=== PATIENT | female | born 1960 | race Caucasian/White ===

== ENCOUNTER 2017-01-15 12:20 | Outpatient (CLI) | END 2017-01-15 12:21 | disposition home or self-care (01) | LOC: CAR 12:20 | PROVIDERS: ATTEND Physician Assistant | DX: I10 Essential (primary) hypertension (principal) | CPT/HCPCS: 93005; 93010 ==

== ENCOUNTER 2017-01-23 12:27 | Outpatient (CLI) ==
--- NOTE | 2017-01-23 13:26 | US ---
EXAM: ULTRASOUND CAROTID DUPLEX, BILATERAL HISTORY: Hypertension, dizziness and speech difficulty FINDINGS: Cho-scale ultrasound, color Doppler and spectral analysis was performed. Velocities are in meters per second. By cho scale and color Doppler imaging, there were regions of heterogeneous plaque formation identi fied within the carotid bulbs and internal carotid arteries. These regions of plaque appeared to re main less than 50% vessel diameter. RIGHT: External carotid artery peak systolic velocity: 0.9/0.2 Common carotid artery peak systolic velocity/end diastolic velocity: 0.9/0.2 Internal carotid artery peak systolic velocity: 0.9 ICA/CCA peak systolic velocity ratio: 0.9 ICA end diastolic velocity: 0.3 LEFT: External carotid artery peak systolic velocity: 1.0/0.2 Common carotid artery peak systolic velocity/end diastolic velocity: 0.9/0.2 Internal carotid artery peak systolic velocity: 0.6 ICA/CCA peak systolic velocity ratio: 0.7 ICA end diastolic velocity: 0.2 The right and left vertebral arteries were antegrade. IMPRESSION: 1. By cho scale and color Doppler imaging, there were regions of heterogeneous plaque formation id entified within the carotid bulbs and internal carotid arteries. These regions of plaque appeared t o remain less than 50% vessel diameter. 2. Internal carotid artery peak systolic velocities and ICA/CCA peak systolic velocity ratios indic ate no hemodynamically significant stenosis bilaterally. 3. Both vertebral arteries were antegrade.
== END 2017-01-23 12:28 | disposition home or self-care (01) ==
LOC: RAD 12:27
PROVIDERS: ATTEND Physician Assistant
DX: R42 Dizziness and giddiness (principal); I10 Essential (primary) hypertension

== ENCOUNTER 2017-02-13 11:04 | Outpatient (CLI) ==
--- NOTE | 2017-02-14 09:39 | MAMMO ---
EXAM: Bilateral digital screening mammogram History: Screening Comparison: Bilateral mammogram 10/09/2008 Findings: MLO and CC views of bilateral breasts demonstrate scattered fibroglandular breast parench yma. Stable benign bilateral breast calcifications. There are no dominant masses, no suspicious mi crocalcifications and no architectural distortions Impression: Benign stable mammogram. Recommend followup routine screening mammography in 1 year. BIRADS 2
== END 2017-02-13 11:05 | disposition home or self-care (01) ==
LOC: RAD 11:04
PROVIDERS: ATTEND Physician Assistant
DX: Z12.31 Encounter for screening mammogram for malignant neoplasm of breast (principal)

== ENCOUNTER 2017-05-08 14:34 | Outpatient (CLI) ==
[2017-05-08 15:09] LABS: CHOL/HDL RATIO 3.6 (4.5-5.5)
== END 2017-05-08 14:35 | disposition home or self-care (01) ==
LOC: LAB 14:34
PROVIDERS: ATTEND Clinical Nurse Specialist
DX: E78.2 Mixed hyperlipidemia (principal)
CPT/HCPCS: 36415; 80061; 84450; 84460

== ENCOUNTER 2018-01-30 12:25 | Outpatient (CLI) | END 2018-01-30 12:26 | disposition home or self-care (01) | LOC: CAR 12:25 | PROVIDERS: ATTEND Physician Assistant | DX: E55.9 Vitamin D deficiency, unspecified (principal); E78.5 Hyperlipidemia, unspecified; R42 Dizziness and giddiness; Z79.899 Other long term (current) drug therapy; Z11.59 Encounter for screening for other viral diseases | CPT/HCPCS: 36415; 80053; 80061; 82306; 82607; 83036; 84436; 84439; 84443; 85025; 86803; 93005; 93010 ==